=== PATIENT | female | born 1965 | race Caucasian/White ===

== ENCOUNTER → 2018-02-19 14:42 | Outpatient (REF) | payer OTHER, SELFPAY ==
--- NOTE | 2018-02-19 14:00 | ENDOMET_PTH ---
PATIENT: Alicia Purvis LOC: [facility] U#:[id number] AGE/SX: 60/F ROOM: RE02/19/[address]: Princess Hayes MD : 1965 BED: DIS: SPEC #: [id number] RECD: 02/19/18 17:58 STATUS: LONI RELaura #: [id number] JENNIFER: 02/19/18 14:[address]: Princess Hayes DEPT: Surgical Specimen RECD BY: Maggie Bartholomew ENTERED: 02/19/18 17:59 SP TYPE: Endomet OTHR DR: Lamberto Stout DO Tissues: 1 - ENDOMETRIUM BX/CURRETTE Procedures: GROSS AND MICRO LEVEL 4 Comments: [id number]
== END ==
LOC: LBN 14:42
PROVIDERS: PCP Emergency Medicine; Visit Provider Obstetrics & Gynecology
DX: N92.0 Excessive and frequent menstruation with regular cycle (principal); N88.8 Other specified noninflammatory disorders of cervix uteri
CPT/HCPCS: 88305

== ENCOUNTER 2018-04-02 11:57 | Outpatient (CLI) | payer OTHER, SELFPAY ==
[2018-04-02 12:46] LABS: Abs Immature Grans 0.01 k/cumm (0.0-0.09); Absolute Basophil Count 0.03 k/cumm (0.0-0.2); Absolute Eosinophil Count 0.18 k/cumm (0.0-0.7); Absolute Lymphocyte Count 1.54 k/cumm (1.2-3.4); Absolute Monocyte Count 0.29 k/cumm (0.11-0.7); Basophils % 0.5; HCT 36.6 % (36.0-46.0); HGB 11.9 g/dL (12.0-15.5); Immature Grans % 0.2; Lymphocytes % 25.5; Mean Corp. HGB Concentration 32.5 g/dL (32.0-36.0); Mean Corpuscular Volume 89.3 fL (80-95); Mean Platelet Volume 11.4 fL (8.0-11.0); Monocytes % 4.8; Platelet Count 291 x1000/uL (130-400); RBC Distribution Width 13.5 % (11.7-14.6); White Blood Cell Count 6.05 k/cumm (4.4-10.8)
[2018-04-02 13:41] LABS: HCG Quant, Pregnancy < 1 mIU/mL (1-3)
== END 2018-04-02 12:17 ==
PROVIDERS: PCP Emergency Medicine; Visit Provider Obstetrics & Gynecology
DX: N92.0 Excessive and frequent menstruation with regular cycle (principal); Z01.818 Encounter for other preprocedural examination; N84.0 Polyp of corpus uteri
CPT/HCPCS: 36415; 86850; 86900; 86901; 84702; 85014; 85018; 85025

== ENCOUNTER 2018-04-03 11:12 | Day surgery (SDC) | payer OTHER, SELFPAY ==
[2018-04-03] VITALS (8 sets, daily range): BP systolic 102–116; BP diastolic 61–70; PULSE 76–85; RESP 11–18; TEMP 36.3–37.5; O2SAT 94–98
--- NOTE | 2018-04-03 08:51 | W.PM.HP.N ---
Date of service: 04/03/18 Assessment and Plan (1) Menorrhagia: Current visit: Yes Status: Acute 52 yo G2 female with menorraghia for surgical treatment Operative hysteroscopy D+C Novasure endometrial ablation She will need frozen section evaluation of her endometrium prior to Novasure endometrial Ablation R/B/A reviewed consents signed History of Present Illness Chief Complaint: Menorraghia Narrative: 52 yo female presented for complaints of prolonged and heavy menstrual periods. Medical work up neg. Endo bx insufficient tissue. Patient has been advised of medical and surgical treatment alternatives for menorraghia. SHe would prefer surgical therapy with D+C, Hysteroscopy Novasure. Since the endometrial bx was insufficient , prior to novasure will do frozen section endometrium. R/B/A as well success rates reviewed with patient. Consents signed. All questions asked and answered. Review of Systems Eyes Comments: See HPI all all system asked and negative PFSH Family History Mother No problems noted. Father No problems noted. Grandfather Neoplasm Maternal Aunt Neoplasm Maternal Aunt Neoplasm Medical History Menorrhagia (Acute) Social History number of children: 2 pets and animals: Yes pets and animals: cat(s) and dog(s) Smoking/Tobacco Use Status: Never alcohol intake: never substance use type: does not use gabriel/hoahaoism: Hinduism special gabriel needs: No seatbelt use: always Surgical History Ligation of fallopian tube section Knee surgery Cholecystectomy Appendectomy Female Reproductive History Menstrual Duration of menses: 8-10 days control method: permanent sterilization Meds Home Medications Medication Instructions Recorded Confirmed Type [id number] fum-folic 1 tab-cap PO DAILY tab-cap 02/19/18 04/01/18 History [ Tablet] ranitidine 75 mg tablet 75 mg PO BID PRN 04/01/18 04/01/18 History ranitidine HCl [Zantac 75] 75 mg PO PRN PRN 04/01/18 04/01/18 History Allergies Allergy/AdvReac Type Severity Reaction Status Date / Time No Known Drug Allergies Allergy Unverified 02/19/18 13:26 Exam Narrative Exam Narrative: well appearing female Resp Effort & Inspection: normal respiratory effort and able to speak in complete sentences Auscultation: clear to auscultation bilaterally Cardio Jugular venous pressure: no JVD Rate: regular rate Rhythm: regular rhythm Heart Sounds: S1 normal and S2 normal External Female Exam: external appearance normal Speculum Exam - Vagina: normal appearance of the vagina Speculum Exam - Cervix: normal appearance of the cervix Bimanual Exam- Vagina & Uterus: normal bimanual exam Bimanual Exam- Adnexa, other: normal adnexae
--- NOTE | 2018-04-03 08:57 | HPE_ITS ---
Date of service: 04/03/18 Assessment and Plan (1) Menorrhagia: Current visit: Yes Status: Acute 52 yo G2 female with menorraghia for surgical treatment Operative hysteroscopy D+C Novasure endometrial ablation She will need frozen section evaluation of her endometrium prior to Novasure endometrial Ablation R/B/A reviewed consents signed History of Present Illness Chief Complaint: Menorraghia Narrative: 52 yo female presented for complaints of prolonged and heavy menstrual periods. Medical work up neg. Endo bx insufficient tissue. Patient has been advised of medical and surgical treatment alternatives for menorraghia. SHe would prefer surgical therapy with D+C, Hysteroscopy Novasure. Since the endometrial bx was insufficient , prior to novasure will do frozen section endometrium. R/B/A as well success rates reviewed with patient. Consents signed. All questions asked and answered. Review of Systems Eyes Comments: See HPI all all system asked and negative PFSH Family History Mother No problems noted. Father No problems noted. Grandfather Neoplasm Maternal Aunt Neoplasm Maternal Aunt Neoplasm Medical History Menorrhagia (Acute) Social History number of children: 2 pets and animals: Yes pets and animals: cat(s) and dog(s) Smoking/Tobacco Use Status: Never alcohol intake: never substance use type: does not use gabriel/yazidism: Yarsani special gabriel needs: No seatbelt use: always Surgical History Ligation of fallopian tube section Knee surgery Cholecystectomy Appendectomy Female Reproductive History Menstrual Duration of menses: 8-10 days control method: permanent sterilization Meds Home Medications Medication Instructions Recorded Confirmed Type [id number] fum-folic 1 tab-cap PO DAILY tab-cap 02/19/18 04/01/18 History [ Tablet] ranitidine 75 mg tablet 75 mg PO BID PRN 04/01/18 04/01/18 History ranitidine HCl [Zantac 75] 75 mg PO PRN PRN 04/01/18 04/01/18 History Allergies Allergy/AdvReac Type Severity Reaction Status Date / Time No Known Drug Allergies Allergy Unverified 02/19/18 13:26 Exam Narrative Exam Narrative: well appearing female Resp Effort & Inspection: normal respiratory effort and able to speak in complete sentences Auscultation: clear to auscultation bilaterally Cardio Jugular venous pressure: no JVD Rate: regular rate Rhythm: regular rhythm Heart Sounds: S1 normal and S2 normal External Female Exam: external appearance normal Speculum Exam - Vagina: normal appearance of the vagina Speculum Exam - Cervix: normal appearance of the cervix Bimanual Exam- Vagina & Uterus: normal bimanual exam Bimanual Exam- Adnexa, other: normal adnexae
[2018-04-03] MEDS: Lactated Ringers 1,000 ML 125 ML IV (12:08)
--- NOTE | 2018-04-03 13:53 | ENDOMET_PTH ---
PATIENT: Alicia Purvis LOC: [facility] U#:[id number] AGE/SX: 52/F ROOM: RE04/03/[address]: Princess Hayes MD : 1965 BED: DIS: 04/03/2018 SPEC #: [id number] RECD: 04/03/18 17:18 STATUS: LNOI REQ #: [id number] JENNIFER: 04/03/18 13:[address]: Princess Hayes DEPT: Surgical Specimen RECD BY: Maggie Bartholomew ENTERED: 04/03/18 17:19 SP TYPE: Endomet OTHR DR: Lamberto Stout DO Tissues: 1 - ENDOMETRIUM BX/CURRETTE 2 - FROZEN SECTION EXAM Procedures: GROSS AND MICRO LEVEL 4 FROZEN SECTION EXAM Comments: [id number]
[2018-04-03] MEDS: fentaNYL 100 MCG/2 ML VIAL IVP (15:15)
[2018-04-03] MEDS: Lactated Ringers 1,000 ML 80 ML IV (15:17)
--- NOTE | 2018-04-03 15:45 | W.PM.DSUDISC ---
Discharge Plan Disposition Patient Disposition: HOME Condition: Good Discharge Details Reason For Visit: MENORRAGHIA / ENDOMETRIAL POLYPS Attending Provider: Princess Hayes Primary Care Provider: Lamberto Stout Home Meds and New Rx's Prescriptions: Continue ibuprofen 800 mg tablet 800 mg PO TID Qty: 30 RF: 1 hydrocodone-acetaminophen [Vicodin] 5-300 mg tablet 1 tab PO Q6H PRN (Reason: pain) Qty: 7 RF: 0 [id number] fum-folic [] 1 EACH tablet 1 tab-cap PO DAILY RF: 0 ranitidine HCl [Zantac 75] 75 mg Tablet 75 mg PO PRN PRNRF: 0 Discharge Instructions Additional Instructions: Postoperative Instructions Outpatient Gynecology Because there will be medication in your system for the next 24 hours, you may feel a little sleepy. Your coordination will be affected. Therefore: Do not drive or operate dangerous equipment for 24 hours. Do not drink alcoholic beverages for 24 hours (not even beer). Plan to go home and rest for the day. Rest, drink liquids and eat lightly for the rest of the day. Do not plan to return to normal activity for two full days. Some women require 5-7 days to feel 100 percent. Arrange to have someone stay with you for the rest of the day. You should arrange for child guidance counselor on the day of surgery. If you have incisions, remove the bandage in 24 hours. You may have a sore throat or hoarseness after surgery. This usually lasts a short time and is relieved by drinking liquids. If hoarseness persists longer than 24 hours, please contact the anesthesia department by calling the hospital. Take Tylenol or Advil for cramping. If that does not work, you may be too active so try cutting back on your activities. You may use up to 3 Advil every (4) four to (6) six hours. Use the prescription medication in between doses of Advil if needed. You should be able to urinate as usual following the surgery. Any form of surgery can cause your menstrual cycle to become irregular. If you have had a D and C you may spot for a week after surgery and your next period will start in (4) four to (6) six weeks. If you have had the sterilization procedure no follow-up appointment is necessary. For other procedures you need a follow-up appointment (4) four to (6) six weeks following surgery. Please call the office for an appointment. If you had a Laparascopic procedure there are no restrictions on douching, tampons, intercourse or tub baths. If you had any vaginal procedure you may not use tampons, have intercourse or douche for 2 weeks. you may take a shower or bath. Please report any of the following conditions or any questions regarding your condition to your doctor and the Day Surgery Unit: Increased drainage or foul smelling drainage. Temperature of 101 F or above. Excessive pain. If you are unable to contact your doctor, contact the hospital at [phone]. Continue all your regular medications unless directed otherwise. Revised 12/26/10 Activity:: Activity as Tolerated Shower/Bathe:: 48 hours Diet:: As Tolerated Discharge Orders Discharge Orders: Discharge Order (Routine); Ordered 04/03/18 Ordered By: Princess Hayes DS: Diagnosis Discharge Diagnosis (1) Menorrhagia: Status: Acute
--- NOTE | 2018-04-03 15:48 | PDOC.DSDIS_ITS ---
Discharge Plan Disposition Patient Disposition: HOME Condition: Good Discharge Details Reason For Visit: MENORRAGHIA / ENDOMETRIAL POLYPS Attending Provider: Princess Hayes Primary Care Provider: Lamberto Stout Home Meds and New Rx's Prescriptions: Continue ibuprofen 800 mg tablet 800 mg PO TID Qty: 30 RF: 1 hydrocodone-acetaminophen [Vicodin] 5-300 mg tablet 1 tab PO Q6H PRN (Reason: pain) Qty: 7 RF: 0 [id number] fum-folic [] 1 EACH tablet 1 tab-cap PO DAILY RF: 0 ranitidine HCl [Zantac 75] 75 mg Tablet 75 mg PO PRN PRNRF: 0 Discharge Instructions Additional Instructions: Postoperative Instructions Outpatient Gynecology * Because there will be medication in your system for the next 24 hours, you may feel a little sleepy. Your coordination will be affected. Therefore: Do not drive or operate dangerous equipment for 24 hours. Do not drink alcoholic beverages for 24 hours (not even beer). Plan to go home and rest for the day. * Rest, drink liquids and eat lightly for the rest of the day. Do not plan to return to normal activity for two full days. Some women require 5-7 days to feel 100 percent. * Arrange to have someone stay with you for the rest of the day. You should arrange for early childhood education worker on the day of surgery. * If you have incisions, remove the bandage in 24 hours. * You may have a sore throat or hoarseness after surgery. This usually lasts a short time and is relieved by drinking liquids. If hoarseness persists longer than 24 hours, please contact the anesthesia department by calling the hospital. * Take Tylenol or Advil for cramping. If that does not work, you may be too active so try cutting back on your activities. You may use up to 3 Advil every (4) four to (6) six hours. Use the prescription medication in between doses of Advil if needed. * You should be able to urinate as usual following the surgery. * Any form of surgery can cause your menstrual cycle to become irregular. If you have had a D and C you may spot for a week after surgery and your next period will start in (4) four to (6) six weeks. * If you have had the sterilization procedure no follow-up appointment is necessary. For other procedures you need a follow-up appointment (4) four to (6 ) six weeks following surgery. Please call the office for an appointment. * If you had a Laparascopic procedure there are no restrictions on douching, tampons, intercourse or tub baths. If you had any vaginal procedure you may not use tampons, have intercourse or douche for 2 weeks. you may take a shower or bath. * Please report any of the following conditions or any questions regarding your condition to your doctor and the Day Surgery Unit: Increased drainage or foul smelling drainage. Temperature of 101 F or above. Excessive pain. * If you are unable to contact your doctor, contact the hospital at [phone]. * Continue all your regular medications unless directed otherwise. Revised 12/26/10 Activity:: Activity as Tolerated Shower/Bathe:: 48 hours Diet:: As Tolerated Discharge Orders Discharge Orders: Discharge Order (Routine); Ordered 04/03/18 Ordered By: Princess Hayes DS: Diagnosis Discharge Diagnosis (1) Menorrhagia: Status: Acute
[2018-04-03] MEDS: HYDROcodone 5/Acetaminophen 325 TAB PO (16:18)
--- NOTE | 2018-04-04 09:46 | ROE_ITS ---
Date of service: 04/03/18 Operative Note Date of procedure: 04/03/18 Pre-op diagnosis: Menorraghia Post-op diagnosis: same Procedure: Hysteroscopy, D+C, Frozen Pathology Endometrium, Novasure Endometrial Ablation Anesthesia: GETA Estimated blood loss (mL): 200 Pathology: other (Frozen pathology Benign endometrium) Complications: Other (laceration form tenaculum posterior cervix repaired with 2 -0 vicryl) Patient was transported to: PACU Patient's condition: stable Indications: Menorraghia Findings: Proliferative endometrium no polyps or fibroid benign endometrium by frozen section Novasure settings Cavity length 5.0 cm, width 4.4 cm, Power 133 Procedure Description: The patient was brought to the operating room where she was properly identified. She was placed on the operating table in the dorsal supine position and prepped and draped in normal sterile fashion. General anesthesia was induced with difficulty. She was then placed in the dorsal lithotomy position and prepped and draped in normal sterile fashion. A formal timeout procedure was then performed confirming patient procedure without cervix surgical personnel present. The bladder was drained with a red rubber catheter without difficulty for 200 cc of clear urine. Linden speculum was placed cervix was visualized clasped in the anterior tenaculum. The cervix was then dilated with Hardwick dilators the hysteroscope was advanced into the uterine cavity without difficulty inspection of the uterine cavity. Both ostia were visualized bilaterally. There is no defect noted. No evidence of submucosal fibroid. The hysteroscope was removed from the uterus a sharp curettage was performed. The endometrial curettings were sent to Dr. Nettles and pathology for frozen section. The pathology intraoperatively revealed mucus blood and benign endometrial tissue. Since the pathology was negative the NovaSure endometrial ablation was performed. The uterine total length was measured at 10 cm. The endometrial cavity length was 5.0 cm. It was attempted to pass the NovaSure apparatus and cavity which was difficult due to the retroverted position of the patient's uterus. The patient once cervix was read using Hegar cervical dilators to 10 cm. This allowed passage of the NovaSure apparatus cavity without apparatus was. An initial cavity was measured at 4.4 cm width. Cavity assessment was in the endometrial ablation was performed without difficulty. All equipment was removed from the uterus and cervix. A 2 cm posterior cervical laceration was noted within the cervix. This laceration was repaired using 2-0 Vicryl in a running locked fashion. Hemostasis was. Sponge lap needle and sponge count were correct x2 and the patient was awakened and taken in stable condition.
== END 2018-04-03 17:02 | disposition home or self-care (01) ==
PROVIDERS: PCP Emergency Medicine; Visit Provider Obstetrics & Gynecology
PROC: 0UDB8ZZ Extraction of Endometrium, Via Natural or Artificial Opening Endoscopic (ICD-10-PCS; CPT 58558; principal; 2018-04-03 13:00)
PROC: (CPT 58353; 2018-04-03 13:00)
DX: N92.0 Excessive and frequent menstruation with regular cycle (principal); N84.0 Polyp of corpus uteri; N99.71 Accidental puncture and laceration of a genitourinary system organ or structure during a genitourinary system procedure; Y65.8 Other specified misadventures during surgical and medical care; K21.9 Gastro-esophageal reflux disease without esophagitis
CPT/HCPCS: 58563; 88305; NC; 88331; J1100; J1885; J2405; J3010

== ENCOUNTER 2018-04-11 10:16 | Outpatient (CLI) | payer OTHER, SELFPAY ==
[2018-04-11 11:35] LABS: Abs Immature Grans 0.04 k/cumm (0.0-0.09); Absolute Basophil Count 0.03 k/cumm (0.0-0.2); Absolute Eosinophil Count 0.17 k/cumm (0.0-0.7); Absolute Lymphocyte Count 1.74 k/cumm (1.2-3.4); Absolute Monocyte Count 0.59 k/cumm (0.11-0.7); Absolute Neutrophil Count 6.05 k/cumm (1.2-6.7); Basophils % 0.3; HCT 32.4 % (36.0-46.0); HGB 10.3 g/dL (12.0-15.5); Immature Grans % 0.5; Lymphocytes % 20.2; Mean Corp. HGB Concentration 31.8 g/dL (32.0-36.0); Mean Corpuscular Hemoglobin 29.3 pg (27.0-33.0); Mean Platelet Volume 11.3 fL (8.0-11.0); Monocytes % 6.8; Neutrophils % 70.2; Platelet Count 352 x1000/uL (130-400); RBC 3.52 m/cumm (4.00-5.20); RBC Distribution Width 13.6 % (11.7-14.6); White Blood Cell Count 8.62 k/cumm (4.4-10.8)
== END 2018-04-11 10:36 ==
PROVIDERS: PCP Emergency Medicine; Visit Provider Emergency Medicine
DX: D64.9 Anemia, unspecified (principal)
CPT/HCPCS: 36415; 85025

== ENCOUNTER 2018-07-21 01:08 | Outpatient (CLI) | payer OTHER, SELFPAY ==
[2018-07-21 15:17] LABS: HCT 38.5 % (36.0-46.0); HGB 12.5 g/dL (12.0-15.5)
--- NOTE | 2018-07-21 15:40 | DI.MAMMO_ITS ---
SYMPTOM/DIAGNOSIS: SCREENING, Z12.31 MAMMOGRAMS: Mammograms were interpreted according to the usual protocol including computer analysis with CAD system, tomosynthesis and C view imaging. Comparison is made with exams from 2428-4245. The breasts are composed of heterogeneously dense fibroglandular tissue, breast density, Category C. Stable circumscribed nodules are again noted bilaterally. No suspicious masses or suspicious microcalcifications are seen. There has been no significant change. IMPRESSION: Category 2C, negative mammogram with benign findings. Yearly screening mammography is recommended. MQSA ASSESSMENT OF FINDINGS: Negative with benign findings. Category 2. Patient will receive a letter notifying them of these results. Bi-RADS category C. The breasts are heterogeneously dense, which may obscure small masses.
== END 2018-07-21 01:28 ==
PROVIDERS: PCP Emergency Medicine; Visit Provider Nurse Practitioner Family
DX: D64.9 Anemia, unspecified (principal); Z12.31 Encounter for screening mammogram for malignant neoplasm of breast
CPT/HCPCS: 36415; 77063; 77067; 85014; 85018

== ENCOUNTER 2018-08-29 16:17 | Outpatient (CLI) | payer OTHER, SELFPAY ==
[2018-08-29 17:17] LABS: ALT 20 U/L (12-78); AST 13 U/L (15-37); Albumin 3.6 g/dL (3.4-5.0); Alkaline Phosphatase 92 U/L (46-116); Anion Gap 8.7 mmol/L (3-11); BUN 10 mg/dL (7-18); Bilirubin, Total 0.3 mg/dL (0.2-1.0); CO2 27.3 mmol/L (21.0-32.0); CREATININE 0.97 mg/dL (0.55-1.02); Calcium 8.4 mg/dL (8.5-10.1); Chloride 103 mmol/L (98-107); Glucose 95 mg/dL (70-100); Iron 43 ug/dL (50-175); Potassium 4.2 mmol/L (3.5-5.1); Sodium 139 mmol/L (136-145); Total Iron Binding Capacity 279 ug/dL (250-450); Transferrin Sat 15 % (15-50)
== END 2018-08-29 16:37 ==
PROVIDERS: PCP Internal Medicine; Visit Provider Internal Medicine
DX: N92.0 Excessive and frequent menstruation with regular cycle (principal); L67.9 Hair color and hair shaft abnormality, unspecified
CPT/HCPCS: 36415; 80053; 83540; 83550

== ENCOUNTER 2018-10-14 12:05 | Outpatient (CLI) | payer OTHER, SELFPAY ==
[2018-10-14 13:04] LABS: HCT 38.5 % (36.0-46.0); HGB 12.5 g/dL (12.0-15.5); Mean Corp. HGB Concentration 32.5 g/dL (32.0-36.0); Mean Corpuscular Hemoglobin 29.7 pg (27.0-33.0); Mean Corpuscular Volume 91.4 fL (80-95); Mean Platelet Volume 11.6 fL (8.0-11.0); Platelet Count 275 x1000/uL (130-400); RBC 4.21 m/cumm (4.00-5.20); RBC Distribution Width 12.7 % (11.7-14.6); White Blood Cell Count 8.12 k/cumm (4.4-10.8)
[2018-10-16 07:52] LABS: Vitamin D 25 Total 8.1 ng/ml (30-100)
== END 2018-10-14 12:25 ==
PROVIDERS: PCP Internal Medicine; Visit Provider Family Medicine
DX: R79.89 Other specified abnormal findings of blood chemistry (principal); Z01.818 Encounter for other preprocedural examination
CPT/HCPCS: 36415; 82306; 85027

== ENCOUNTER 2018-11-25 02:45 | Outpatient (CLI) | payer OTHER, SELFPAY ==
[2018-11-25 11:20] LABS: HGB 11.7 g/dL (12.0-15.5)
== END 2018-11-25 03:05 ==
PROVIDERS: PCP Internal Medicine; Visit Provider Internal Medicine
DX: D64.9 Anemia, unspecified (principal)
CPT/HCPCS: 36415; 85014; 85018

== ENCOUNTER 2018-12-22 09:25 | Outpatient (CLI) | payer OTHER, SELFPAY ==
[2018-12-22 13:56] LABS: HCT 38.1 % (36.0-46.0); HGB 12.3 g/dL (12.0-15.5); Mean Corp. HGB Concentration 32.3 g/dL (32.0-36.0); Mean Corpuscular Volume 92.9 fL (80-95); Mean Platelet Volume 11.7 fL (8.0-11.0); Platelet Count 302 x1000/uL (130-400); RBC Distribution Width 12.9 % (11.7-14.6); White Blood Cell Count 6.61 k/cumm (4.4-10.8)
[2018-12-22 15:13] LABS: Iron 64 ug/dL (50-175); Total Iron Binding Capacity 274 ug/dL (250-450); Transferrin Sat 23 % (15-50)
== END 2018-12-22 09:45 ==
PROVIDERS: PCP Internal Medicine; Visit Provider Internal Medicine
DX: D64.9 Anemia, unspecified (principal)
CPT/HCPCS: 36415; 85027; 83540; 83550

== ENCOUNTER 2019-01-14 01:34 | Outpatient (CLI) | payer OTHER, SELFPAY ==
[2019-01-15 05:21] LABS: Vitamin D 25 Total 34.8 ng/ml (30-100)
== END 2019-01-14 01:54 ==
PROVIDERS: PCP Internal Medicine; Visit Provider Internal Medicine
DX: E55.9 Vitamin D deficiency, unspecified (principal)
CPT/HCPCS: 36415; 82306

== ENCOUNTER 2019-09-25 00:15 | Outpatient (CLI) | payer OTHER, SELFPAY ==
[2019-09-25 07:37] LABS: HGB 12.9 g/dL (12.0-15.5); Mean Corp. HGB Concentration 32.3 g/dL (32.0-36.0); Mean Platelet Volume 10.7 fL (8.0-11.0); Platelet Count 299 x1000/uL (130-400); RBC Distribution Width 12.5 % (11.7-14.6); White Blood Cell Count 6.75 k/cumm (4.4-10.8)
[2019-09-25 08:48] LABS: Iron 88 ug/dL (50-170); Total Iron Binding Capacity 253 ug/dL (250-450); Transferrin Sat 35 % (15-50)
[2019-09-25 08:49] LABS: ALT 13 U/L (14-59); AST 8 U/L (15-37); Albumin 3.5 g/dL (3.4-5.0); Alkaline Phosphatase 88 U/L (46-116); Anion Gap 7.7 mmol/L (3-11); BUN 9 mg/dL (7-18); Bilirubin, Total 0.5 mg/dL (0.2-1.0); CO2 28.3 mmol/L (21.0-32.0); Calcium 8.6 mg/dL (8.5-10.1); Chloride 103 mmol/L (98-107); Glucose 87 mg/dL (74-106); Sodium 139 mmol/L (136-145); Total Protein 6.7 g/dL (6.4-8.2)
== END 2019-09-25 00:35 ==
PROVIDERS: PCP Internal Medicine; Visit Provider Internal Medicine
DX: Z00.00 Encounter for general adult medical examination without abnormal findings (principal); D64.9 Anemia, unspecified
CPT/HCPCS: 36415; 80053; 85027; 83540; 83550

== ENCOUNTER 2020-04-27 11:04 | Emergency (ER) | payer OTHER, SELFPAY ==
[2020-04-27 11:08] VITALS: BP 116/73; PULSE 88; RESP 18; TEMP 36.7; O2SAT 97
--- NOTE | 2020-04-27 12:18 | W.ED.GENAD ---
Discharge Plan Disposition Patient Disposition: HOME Condition: Stable Discharge Details Clinical Impression: Finger laceration, Laceration of finger nail bed Primary Care Provider: Chula Mccollum ED Provider: Francia Clark Home Meds and New Rx's Prescriptions: New cephalexin [Keflex] 500 mg capsule 500 mg PO TID 7 Days Qty: 21 RF: 0 Continued cholecalciferol (vitamin D3) 5,000 unit tablet,disintegrating 5,000 unit PO DAILY RF: 0 polysaccharide iron complex [Ferric x-150] 150 mg iron capsule 150 mg PO DAILY Qty: 90 RF: 3 omega-3 fatty acids Capsule 1 cap PO DAILY RF: 0 docusate sodium [Colace] 100 mg Capsule 100 mg PO PRN PRNRF: 0 Discharge Instructions Instructions: Finger Laceration (ED) Additional Instructions: Take the antibiotics until finished. Alternate tylenol and motrin as needed and directed for pain. Take the oxycodone for pain not relieved with Tylenol or Motrin. Keep wound clean and dry. Cover wound with bandage if risk of contamination. Otherwise you can keep the wound open to air if resting at home to allow edges to dry and heal. Return to the emergency department in 7-10 days for suture removal. Return immediately to the emergency department if you develop any worsening or new concerning symptoms such as fever, chills, increased pain, redness or swelling. Stand Alone Forms: Work Release Discharge Data Discharge Date/Time-TO BE ENTERED AT DEPARTURE: 04/27/20 15:00 Discharge Physician: Francia Clark Medical Decision Making 1120 -- 54-year-old female presents with laceration to her left fourth fingertip after a piece of metal ricocheted from a chop saw on hit the distal end of her finger. She has a laceration through the nail and soft tissue of her distal fourth fingertip. Volar aspect of finger still intact. There is no obvious bony protrusion or foreign body. Motor/sensory grossly intact. Patient stating she is in severe pain. Will give a dose of oxycodone, ibuprofen, irrigate, obtain x-ray and closed with sutures. 1430 -- X-ray negative for acute findings. There did appear to be a small foreign bodies noted on the lower aspect of her hand on the x-ray, but this was due to shavings from her ring which was removed by the ring cutter just prior to x-ray. These small superficial foreign bodies were removed with cleaning. Patient had 3 nylon 3-0 sutures placed to left distal fourth finger, 2 through nail, 1 through soft tissue. She remained neurovascularly intact. She was given a dose of Keflex here as well as prescription. She had requested pain medication for home to help with sleep. Advised to follow up with the primary care doctor for re-evaluation. Usual and customary return precautions given prior to discharge. Imaging Data Radiologic Study: Radiologist's impression: XR HAND LT COMPLETE CLINICAL HISTORY: lac 4th distal finger/2nd prox phalange, r/o fx/fb TECHNIQUE: COMPARISON: No exams were available for comparison FINDINGS: Three views were obtained. No fracture is seen. HPI General Mode of arrival: ambulatory. Date/Time Provider Initiated Documentation: 04/27/20 11:09. Limitations to Documentation: no limitations. Information obtained by: patient. HPI Narrative: Patient is a 54-year-old female who presents with laceration to her left fourth finger with injury to her nail that occurred when using a chop saw at work and caused a metal blade to ricochet from the instrument and hit the distal end of her finger. She also has superficial lacerations to her left second and fifth fingers. Her last tetanus was 3 years ago. She has not taken any medication for pain. Related Data Home Medications Medication Instructions Recorded Confirmed cholecalciferol (vitamin D3) 125 5,000 unit PO DAILY 09/30/19 04/27/20 mcg (5,000 unit) disintegrating tablet polysaccharide iron complex 150 mg 150 mg PO DAILY #90 cap 02/24/20 04/27/20 iron capsule cephalexin [Keflex] 500 mg PO TID 7 Days #21 cap 04/27/20 docusate sodium [Colace] 100 mg PO PRN PRN 04/27/20 04/27/20 omega-3 fatty acids 1 cap PO DAILY 04/27/20 04/27/20 Previous Rx's Medication Instructions Recorded polysaccharide iron complex 150 mg 150 mg PO DAILY #90 cap 02/24/20 iron capsule cephalexin [Keflex] 500 mg PO TID 7 Days #21 cap 04/27/20 Allergies Allergy/AdvReac Type Severity Reaction Status Date / Time No Known Drug Allergies Allergy Unverified 04/27/20 11:13 General Stated Complaint: Laceration KELLEY: 3 Review of Systems All systems reviewed & are unremarkable except as noted in HPI and below PFSH Medical History (Updated 04/27/20 @ 14:38 by Francia Clark DO) Menorrhagia resolved post op 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 Father No problems noted. Paternal Grandfather , 85 Colon cancer Maternal Aunt Breast cancer Maternal Aunt Breast cancer Maternal Grandfather , 83 No problems noted. Maternal Grandmother , 84 No problems noted. Paternal Grandmother , 80 No problems noted. Son No problems noted. Son No problems noted. Sister No problems noted. Son No problems noted. Social History (Updated 10/01/19 @ 08:28 by Viktor Mcdonnell) Smoking/Tobacco Use Status: Never Alcohol Intake: current Alcohol Intake frequency: 0-2 drinks per day Drug use: Never Substance use type: does not use Caregiver/Support person: No Household members: significant other and children Housing: house Number of Children: 2 Pets and animals: Yes Pets and animals: cat(s) and dog(s) Sexually active: No Do you think of yourself as: lesbian/caldera/homosexual Current gender identity: female What is your relationship status?: living with partner How often do you talk on the phone with friends or family?: twice per week How often do you get together with friends or relatives?: once per week How often do you attend gnosticism or bahai services?: 1-3 times per year Do you belong to any clubs or organized social groups?: yes Panel score (0-1 are the most socially isolated patients): 3 What type of physical activity do you participate in: walking and other Details: treadmill & bike Duration: 45-60 minutes/day Frequency: 3-4 times per week Keely/Zoroastrian: Adventism Special keely needs: No Seatbelt use: always Helmet use: Yes Helmet use: always 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 Do you feel safe at home: Yes Do you feel safe in your relationship?: Yes Female Reproductive History Menstrual Duration of menses: 8-10 days control method: permanent sterilization Exam Const General: cooperative, healthy appearing and no acute distress HENMT Head: normal to inspection Mouth: oral mucosae normal Eyes General: appearance normal, both eyes and all related structures Neck Neck: normal visual inspection Resp Effort & Inspection: normal respiratory effort and able to speak in complete sentences Cardio Rate: regular rate Skin General skin exam: no rashes or lesions noted Neuro General: patient alert, patient awake, patient oriented x3, moves all extremities and no focal motor deficits Motor: muscle tone normal throughout and strength 5/5 throughout Sensory Exam: no sensory deficits noted Extrem Hand/finger images: 1. Laceration through middle portion of nail of the left fourth finger. Volar aspect of finger appears intact. No obvious bone protrusion. No obvious foreign bodies. 2. 3 mm superficial laceration noted to dorsal aspect of left second proximal phalange 3. 3 mm superficial laceration noted to the dorsal lateral aspect of left fifth finger. Psych Appearance: grossly normal Affect: normal affect Course Vital Signs Vital signs: Vital Signs Temperature 98.1 F 04/27/20 11:08 Pulse 88 04/27/20 11:08 Respiratory Rate 18 04/27/20 11:08 Blood Pressure 116/73 04/27/20 11:08 Pulse Oximetry 97 04/27/20 11:08 Temperature 98.1 F 04/27/20 11:08 Temperature Source Skin 04/27/20 11:08 Pulse 88 04/27/20 11:08 Respiratory Rate 18 04/27/20 11:08 Respiratory Effort 04/27/20 11:15 Blood Pressure 116/73 04/27/20 11:08 Blood Pressure Position Sitting 04/27/20 11:08 Pulse Oximetry 97 04/27/20 11:08 Oxygen Delivery Method Room Air 04/27/20 11:08 Oxygen Flow Rate 0 04/27/20 11:08 Pain Level 10 04/27/20 11:08 Comment 04/27/20 11:08 Procedures Laceration Laceration 1: Site: hand (4th finger) Side (If applicable): left Size (cm): 1 Description: other (transverse through middle of nail extending to skin on sides of nail) Depth: simple, single layer (extending through nail and soft tissue. Bone intact.) Local Anesthetic: Lidocaine 1% Amount of anesthesia used (mL): 5 Pre-repair: wound explored, irrigated extensively, deep structures intact and wound margins revised Skin layer closed with: nylon Size (cm): 3-0 Number of sutures: 3 Technique: simple, interrupted
[2020-04-27] MEDS: Ibuprofen 600 MG TAB PO (12:26)
[2020-04-27] MEDS: oxyCODONE 5 MG TAB PO (12:26)
--- NOTE | 2020-04-27 12:48 | DI.RAD_ITS ---
EXAM: XR HAND LT COMPLETE CLINICAL HISTORY: lac 4th distal finger/2nd prox phalange, r/o fx/fb TECHNIQUE: COMPARISON: No exams were available for comparison FINDINGS: Three views were obtained. No fracture is seen. IMPRESSION: RADIATION DOSE DELIVERED: Total DLP
[2020-04-27] MEDS: Cephalexin 500 MG CAP PO (14:47)
[2020-04-27 15:08] VITALS: BP 110/66; PULSE 76; RESP 18; TEMP 36.3; O2SAT 98
== END 2020-04-27 15:00 | disposition home or self-care (01) ==
PROVIDERS: Emergency Provider Physician Assistant; PCP Nurse Practitioner
DX: S61.315A Laceration without foreign body of left ring finger with damage to nail, initial encounter (principal); S61.211A Laceration without foreign body of left index finger without damage to nail, initial encounter; S61.217A Laceration without foreign body of left little finger without damage to nail, initial encounter; W27.0XXA Contact with workbench tool, initial encounter; Y99.0 Civilian activity done for income or pay
CPT/HCPCS: 12001; 99281; 73130

== ENCOUNTER 2020-04-29 16:11 | Outpatient (REF) | payer OTHER, SELFPAY ==
--- NOTE | 2020-04-29 15:20 | PAPFT_PTH ---
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
== END 2020-04-29 16:31 ==
LOC: LBN 16:11
PROVIDERS: PCP Nurse Practitioner; Visit Provider Nurse Practitioner Family
DX: Z12.4 Encounter for screening for malignant neoplasm of cervix (principal); Z11.51 Encounter for screening for human papillomavirus (HPV)
CPT/HCPCS: 88142; 87624

== ENCOUNTER 2020-05-19 01:28 | Outpatient (CLI) | payer OTHER, SELFPAY ==
--- NOTE | 2020-05-19 15:32 | DI.MAMMO_ITS ---
EXAM: MG MAMMO SCREENING CLINICAL HISTORY: screening TECHNIQUE: Mammograms were interpreted according to the usual protocol including computer analysis w [employer] CAD system, tomosynthesis and C-view imaging. COMPARISON: FINDINGS: The breasts are heterogeneously dense. There is group of well-circumscribed nodules of the upper out er quadrant of the left breast grossly unchanged from prior examination of June 2018. No new mas s or clumped microcalcification seen in either breast. IMPRESSION: No specific evidence of malignancy at this time. Routine screening examinations are suggested at yea rly intervals due to the family history of breast carcinoma. BI-RADS Category 1 - Negative Breast Density - Category C - Heterogeneously dense
== END 2020-05-19 01:48 ==
PROVIDERS: PCP Nurse Practitioner; Visit Provider Nurse Practitioner Family
DX: Z12.31 Encounter for screening mammogram for malignant neoplasm of breast (principal); Z80.3 Family history of malignant neoplasm of breast
CPT/HCPCS: 77063; 77067

== ENCOUNTER 2020-05-19 02:31 | Outpatient (CLI) | payer OTHER, SELFPAY ==
[2020-05-19 16:52] LABS: TSH (W/Ref FT4) 1.55 uIU/mL (0.36-3.74)
== END 2020-05-19 02:51 ==
PROVIDERS: PCP Nurse Practitioner; Visit Provider Nurse Practitioner Family
DX: E04.9 Nontoxic goiter, unspecified (principal)
CPT/HCPCS: 36415; 84443

== ENCOUNTER 2020-06-13 10:05 | Outpatient (CLI) | payer OTHER, SELFPAY ==
[2020-06-14 17:27] LABS: SARS-CoV-2 RNA Not Detected (NotDetected); SARS-CoV-2 RNA Source Nasal/Nares
== END 2020-06-13 10:25 ==
PROVIDERS: Surgery; PCP Nurse Practitioner; Visit Provider Nurse Practitioner
DX: Z11.59 Encounter for screening for other viral diseases (principal)
CPT/HCPCS: U0003

== ENCOUNTER 2020-06-28 03:33 | Outpatient (CLI) | payer OTHER, SELFPAY ==
[2020-07-01 18:52] LABS: COVID-19 RT-PCR Result NEGATIVE (Negative)
== END 2020-06-28 03:53 ==
PROVIDERS: PCP Nurse Practitioner; Visit Provider Surgery
DX: Z11.59 Encounter for screening for other viral diseases (principal); Z01.818 Encounter for other preprocedural examination
CPT/HCPCS: U0003

== ENCOUNTER 2020-07-01 06:14 | Day surgery (SDC) | payer OTHER, SELFPAY ==
[2020-07-01 06:29] VITALS: BP 104/65; PULSE 86; RESP 16; TEMP 36.7; O2SAT 95
[2020-07-01] MEDS: Lactated Ringers 1,000 ML 80 ML IV (07:05)
--- NOTE | 2020-07-01 07:16 | W.PM.DSUDISC ---
Discharge Plan Disposition Patient Disposition: HOME Condition: Good Discharge Details Reason For Visit: Colonoscopy Attending Provider: Yandy Toro Primary Care Provider: Chula Mccollum Home Meds and New Rx's Prescriptions: Continued cholecalciferol (vitamin D3) 5,000 unit tablet,disintegrating 5,000 unit PO DAILY RF: 0 ascorbate calcium (vitamin C) 500 mg tablet 500 mg PO DAILY RF: 0 polysaccharide iron complex [Ferric x-150] 150 mg iron capsule 150 mg PO DAILY Qty: 90 RF: 3 omega-3 fatty acids Capsule 1 cap PO DAILY RF: 0 docusate sodium [Colace] 100 mg Capsule 100 mg PO PRN PRNRF: 0 Discharge Instructions Additional Instructions: Findings: Your colonoscopy was normal. Follow up: Plan for routine screening colonoscopy in 10 years or sooner if symptoms arise. Please call if you develop: fevers >101.5 Nausea or Vomiting Abdominal pain that is not transient DAY SURGERY UNIT POST COLONOSCOPY INSTRUCTIONS 1. Because there will be medication in your system for the next 24 hours, you may feel a little sleepy. Your coordination will be affected. Therefore: a. Do not drive or operate dangerous equipment for 24 hours. b. Do not drink alcohol beverages for 24 hours (not even beer). c. Plan to go home and rest for the day. 2. Generally there are no restrictions on your activity after a day or so has gone by, but you may feel a bit fatigued for a few days. 3 After you arrive home you may have a light meal and return to a normal diet as you can tolerate it without feeling sick to your stomach. 4. After surgery, you may feel pain or discomfort. This should be only transient, but if it persists please contact your doctor. 5. If there are any questions regarding the findings of your procedure, please feel free to contact your doctor. 6. If you are unable to contact your doctor with a problem, contact the hospital at [phone]. 7. Continue all your regular medications unless directed otherwise. I understand the above instructions and have no questions. Signature of Patient or Responsible Adult Escort Date/Time Name of Responsible Adult Escort Signature of Nurse Date/Time Activity:: Activity as Tolerated Diet:: As Tolerated Discharge Orders Discharge Orders: Discharge Order (Routine); Ordered 07/01/20 Ordered By: Yandy Toro DS: Diagnosis Discharge Diagnosis (1) Normal colonoscopy: Status: Acute
--- NOTE | 2020-07-01 07:17 | W.COLOREPORT ---
Colonoscopy Report Date of procedure: 07/01/20 Pre-op diagnosis general: Screening Post-op diagnosis procedure note: other (Normal colon) Procedure: Colonoscopy Surgeon: Yandy Toro Anesthesia proc note operative: MAC Indications: This 54 year old woman presents for her first screening colonoscopy. No new symptoms or first degree relative with colon cancer. Her grandfather had colon cancer. Procedure Description: The patient was placed in the left [place] position. Propofol was titrated to sedation. Digital rectal examination revealed no abnormalities. The scope was advanced to the cecum without difficulty. The ileocecal valve and appendiceal orifice were clearly identified. The prep was good. The scope was slowly withdrawn over the course of greater than 6 minutes with no abnormalities seen in the ascending, transverse, descending, sigmoid colon or rectum including on retroflexed view. The patient tolerated the procedure well and was stable to recovery. Plan for routine screening colonoscopy in 10 years or sooner if symptoms indicate.
[2020-07-01 08:21] VITALS: BP 108/64; PULSE 73; RESP 16; TEMP 36.6; O2SAT 97
== END 2020-07-01 08:40 | disposition home or self-care (01) ==
PROVIDERS: PCP Nurse Practitioner; Visit Provider Surgery
PROC: 0DJD8ZZ Inspection of Lower Intestinal Tract, Via Natural or Artificial Opening Endoscopic (ICD-10-PCS; CPT 45378; principal; 2020-07-01 07:30)
DX: Z12.11 Encounter for screening for malignant neoplasm of colon (principal)
CPT/HCPCS: 45378; J2001

== ENCOUNTER 2020-11-02 03:10 | Outpatient (CLI) | payer OTHER, SELFPAY ==
[2020-11-02 07:59] LABS: HCT 37.6 % (36.0-46.0); HGB 12.6 g/dL (11.2-15.7); MCH 31.3 pg (27.0-33.0); MCHC 33.5 % (32.0-36.0); MCV 93.5 fL (80-95); MPV 10.9 fL (8.0-11.0); Platelet Count 278 10^3/uL (130-400); RBC 4.02 10^6/uL (3.93-5.22); RDW 11.8 % (11.7-14.6); WBC 6.81 10^3/uL (4.4-10.8)
[2020-11-02 08:09] LABS: Hemoglobin A1C 5.3 % (<5.7)
[2020-11-02 09:04] LABS: Calculated LDL 139 mg/dL (<100); Cholesterol 218 mg/dL (<200); HDL Cholesterol 52 mg/dL (40-60); Triglyceride 136 mg/dL (<150)
== END 2020-11-02 03:11 | disposition home or self-care (01) ==
LOC: LBO 03:10
PROVIDERS: PCP Nurse Practitioner; Visit Provider Nurse Practitioner
DX: Z86.2 Personal history of diseases of the blood and blood-forming organs and certain disorders involving the immune mechanism (principal); Z13.6 Encounter for screening for cardiovascular disorders; Z13.1 Encounter for screening for diabetes mellitus
CPT/HCPCS: 36415; 80061; 85027; 83036

== ENCOUNTER 2021-03-08 14:14 | Outpatient (CLI) | payer OTHER, SELFPAY ==
[2021-03-08 17:33] LABS: TSH 0.01 uIU/mL (0.36-3.74)
== END 2021-03-08 14:15 | disposition home or self-care (01) ==
LOC: LBO 14:16
PROVIDERS: PCP Nurse Practitioner; Visit Provider Preventive Medicine Undersea and Hyperbaric Medicine
DX: E07.9 Disorder of thyroid, unspecified (principal)
CPT/HCPCS: 36415; 84443

== ENCOUNTER 2021-03-28 04:35 | Outpatient (CLI) | payer OTHER, SELFPAY ==
[2021-03-28 13:10] LABS: TSH 0.02 uIU/mL (0.36-3.74)
[2021-03-29 12:40] LABS: Thyroglobulin Antibody <1.8 IU/mL (<1.8); Thyroglobulin Tumor Marker 0.1 ng/mL
== END 2021-03-28 04:36 | disposition home or self-care (01) ==
LOC: LBO 04:35
PROVIDERS: PCP Nurse Practitioner; Visit Provider Preventive Medicine Undersea and Hyperbaric Medicine
DX: E07.9 Disorder of thyroid, unspecified (principal)
CPT/HCPCS: 36415; 84432; 84443; 86800

== ENCOUNTER 2021-05-29 00:32 | Outpatient (CLI) | payer OTHER, SELFPAY ==
--- NOTE | 2021-05-29 08:18 | DI.MAMMO_ITS ---
Exam(s) MAMMO SCREENING EXAM: MAMMO SCREENING CLINICAL HISTORY: screening,z12.39 TECHNIQUE: Bilateral full field digital CC and MLO mammographic images were obtained with 3D tomosyn thesis and utilizing computer aided detection (CAD). COMPARISON: Available for comparison. FINDINGS: Masses/Architectural Distortion: No suspicious masses or areas of architectural distortion. Microcalcifications: No suspicious pleomorphic-type are seen. Skin Thickening/Nipple Retraction: None. IMPRESSION: 1. No significant interval change with no specific features of malignancy noted. 2. Unless there is more urgent need, screening mammography is recommended, as per [place] [employer] guidelines. BI-RADS Category 1 - Negative Breast Density - Category C - Heterogeneously dense Breast density category C or D implies that the patient has dense breast tissue. Dense breast tissue is very common and is not abnormal but dense breast tissue can make it harder to find cancer on a ma mmogram. Also, dense breast tissue may increase their breast cancer risk. This information about the result of the mammogram report was provided to the patient to raise their awareness. Use this report when you speak with the patient about their risks for breast cancer, which includes their family hist ory. At that time, you may recommend for more screening tests (Ultrasound or MRI) as they might be us eful based on their risk. A negative radiographic report should not delay biopsy if a dominant or clinically suspicious mass is present. Up to ten percent of cancers are not identified on mammography. A negative report may reinforce clinical impression. Adenosis and dense breasts may obscure an underlying neoplasm. False positive reports average 6 to 10%. Patient will receive a letter notifying them of these results.
== END 2021-05-29 00:52 ==
PROVIDERS: PCP Nurse Practitioner; Visit Provider Nurse Practitioner
DX: Z12.31 Encounter for screening mammogram for malignant neoplasm of breast (principal); R92.8 Other abnormal and inconclusive findings on diagnostic imaging of breast
CPT/HCPCS: 77063; 77067

== ENCOUNTER 2021-09-22 03:48 | Outpatient (CLI) | payer OTHER, SELFPAY ==
[2021-09-22 16:50] LABS: Calcium 8.6 mg/dL (8.5-10.1); FREE T4 1.15 ng/dL (0.76-1.46); TSH 0.47 uIU/mL (0.36-3.74)
[2021-09-25 12:15] LABS: Parathyroid Hormone,Intact 77 pg/mL (19-88)
== END 2021-09-22 03:49 | disposition home or self-care (01) ==
LOC: LBO 03:48
PROVIDERS: PCP Nurse Practitioner; Visit Provider Internal Medicine Endocrinology, Diabetes & Metabolism
DX: E05.90 Thyrotoxicosis, unspecified without thyrotoxic crisis or storm (principal)
CPT/HCPCS: 36415; 82310; 83970; 84439; 84443

== ENCOUNTER 2022-04-19 04:11 | Outpatient (CLI) | payer OTHER, SELFPAY ==
[2022-04-19 14:14] LABS: FREE T4 1.18 ng/dL (0.76-1.46); TSH 0.26 uIU/mL (0.36-3.74)
[2022-04-20 14:46] LABS: Thyroglobulin Antibody <1.8 IU/mL (<1.8); Thyroglobulin Tumor Marker 0.1 ng/mL
== END 2022-04-19 04:12 | disposition home or self-care (01) ==
LOC: LBO 04:11
PROVIDERS: PCP Nurse Practitioner; Visit Provider Student in an Organized Health Care Education/Training Program
DX: Z85.850 Personal history of malignant neoplasm of thyroid (principal)
CPT/HCPCS: 36415; 84432; 84439; 84443; 86800

== ENCOUNTER → 2022-06-01 00:27 | Outpatient (CLI) | payer OTHER, SELFPAY ==
--- NOTE | 2022-06-01 08:30 | DI.MAMMO_ITS ---
Exam(s) MAMMO SCREENING EXAM: MAMMO SCREENING CLINICAL HISTORY: screening, Z12.39. TECHNIQUE: Bilateral full field digital CC and MLO mammographic images were obtained with 3D tomosyn thesis and utilizing computer aided detection (CAD). COMPARISON: Prior mammograms were reviewed. There has been interval bilateral reduction surgery since the mammogram of May 2021. FINDINGS: There are no CAD designations. Surgical clips are noted in both breasts from the interval surgery. There are 2 nodules located medial of center in the left breast, both measuring approximately 7 x 6 m illimeters, and there is another similar size nodule located lateral of center on the CC view. These nodules are also evident on the MLO view In the right breast on the MLO view there are 2 similar size adjacent small nodules located inferiorl y, approximately 6 cm in from the nipple. There are no malignant-appearing microcalcification groups in either breast. New bilateral architectural distortion is related to the reduction surgery. IMPRESSION: Bilateral nodules as described individually above. Bilateral spot compression 3D views and bilateral breast ultrasound recommended. BI-RADS Category 0 - Assessment Incomplete: Need additional imaging evaluation Breast Density - Category C - Heterogeneously dense Breast density Category C or D implies that the patient has dense breast tissue. Dense breast tissue can make it harder to find cancer on a mammogram. Dense breast tissue is also associated with an incr eased risk of breast cancer. This information about the result of the mammogram report was provided to the patient to raise their awareness. Use this report when you speak with the patient about their risks for breast cancer, which includes their family history. At that time, you may recommend additional screening tests (Ultrasoun d or MRI) as these tests may add significant information. A negative radiographic report should not delay biopsy if a dominant or clinically suspicious mass is present. Up to ten percent of cancers are not identified on mammography. A negative report may reinforce clinical impression. Adenosis and dense breasts may obscure an underlying neoplasm. False positive reports average 6 to 10%. Patient will receive a letter notifying them of these results.
== END ==
PROVIDERS: PCP Nurse Practitioner Family; Visit Provider Nurse Practitioner
DX: Z12.31 Encounter for screening mammogram for malignant neoplasm of breast (principal); R92.8 Other abnormal and inconclusive findings on diagnostic imaging of breast
CPT/HCPCS: 77063; 77067

== ENCOUNTER → 2022-06-08 00:26 | Outpatient (CLI) | payer OTHER, SELFPAY ==
--- NOTE | 2022-06-08 | DI.MAMMO_ITS ---
Exam(s) US BREAST LT COMPLETE US BREAST RT COMPLETE MG MAMMO SCREEN CALL BACK BI EXAM: MG MAMMO SCREEN CALL BACK BI AND BILATERAL COMPLETE BREAST ULTRASOUND CLINICAL HISTORY: F/U MAMMO, 2 NODULES LT BREAST, 2 NODULES RT BREAST, R92.8. TECHNIQUE: Bilateral spot mammographic images obtained with 3D tomosynthesisand utilizing computer a ided detection (CAD). In addition, following today's ultrasound additional CC and MLO views of both b reasts performed for correlated purposes.. Complete bilateral breast Ultrasound was also performed, including all 4 quadrants, the retroareolar region, and the ipsilateral axilla. During today's ultrasound examination Beakley spot was placed ov er findings in both breasts and thereafter repeat mammogram was performed for correlated purposes. COMPARISON: Prior mammograms were reviewed. This additional imaging was performed due to findings described on the recent screening mammogram of 06/01/2022. FINDINGS: DIAGNOSTIC MAMMOGRAM: Additional mammographic views performed todayreveal the previously described nodules.We proceeded wit h ultrasound. COMPLETE BILATERAL BREAST ULTRASOUND: Ultrasound performed today reveals multiple bilateral findings... LEFT BREAST ULTRASOUND: At the 12 o'clock position there is a by 3 millimeter nodule which is wider than taller and is probab ly hemorrhagic or proteinaceous microcyst. At the 3 o'clock position which there is a 5 x 3 millimeter taller than wider hypoechoic nodular dens ity which exhibits decreased through transmission. A Beakley spot marker was placed over this area. Also at the 3 o'clock position is a small 3 x 2 millimeter wider than taller probable hemorrhagic or proteinaceous microcyst. At the 4 o'clock position there is a 5 x 3 millimeter wider than taller benign-appearing nodule which is either a benign intramammary lymph node or possibly hemorrhagic microcysts. At the 6 o'clock position there is a 5 x 3 millimeter finding which is probably a microcyst. At the 9 o'clock position there is a 3 x 2 millimeter probable hemorrhagic microcysts. Left axilla is negative for significant adenopathy. RIGHT BREAST ULTRASOUND: At the 12 o'clock position there is a 6 x 3 millimeter benign microcyst. At the 3 o'clock position there is a 1.3 by 0.6 cm finding which is probably hemorrhagic or partially hemorrhagic cyst. At the 7 o'clock position there is a 2 millimeter microcyst. Also at 7 o'clock position there is a 5 x 2 millimeter wider than taller probable hemorrhagic or prot einaceous microcyst. At 8 o'clock position there is a similar appearing 4 x 2 millimeter probable hemorrhagic or proteinac eous microcyst. At the 8 o'clock position there is also a 7 x 3 millimeter wider than taller benign-appearing hemorrh agic or proteinaceous microcyst. At the 9 o'clock position there is a 5 x 2 millimeter microcyst. At the 10 o'clock position there is a 7 x 6 millimeter probable hemorrhagic microcysts. At the central 10 o'clock position there is a 5 x 8 millimeter taller than wider finding which exhibi ts decreased through transmission. A Beakley spot was placed at this site. REPEAT MAMMOGRAM WAS THEN PERFORMED WITH BOTH CC AND MLO VIEWS OF BOTH BREASTS WITH THE BEAKLEY SPOT STENT PLACED AT THE 10 O'CLOCK POSITION OF THE RIGHT BREAST AND 3 O'CLOCK POSITION OF THE LEFT BREAST . These additional mammographic views do not reveal the ultrasound findings to correspond to any truly discernible concerning mammographic findings. IMPRESSION: 1. Mammographic and ultrasound findings as above. I feel that we are most probably dealing with mul tiple foci of fat necrosis related to the recent bilateral reduction mammoplasty surgery. 2. Appropriate follow-up, as discussed by myself with the patient today, is repeat bilateral breast imaging in 6 months, this to include repeat bilateral 3D mammography and bilateral complete breast ul trasound. Of course, earlier imaging would be recommended if there is a self detected breast change noted. BI-RADS Category 3 - 6 month - Probably Benign Finding: Recommend follow-up mammography in 6 months Breast Density - Category C - Heterogeneously dense Breast density Category C or D implies that the patient has dense breast tissue. Dense breast tissue can make it harder to find cancer on a mammogram. Dense breast tissue is also associated with an incr eased risk of breast cancer. This information about the result of the mammogram report was provided to the patient to raise their awareness. Use this report when you speak with the patient about their risks for breast cancer, which includes their family history. At that time, you may recommend additional screening tests (Ultrasoun d or MRI) as these tests may add significant information. A negative radiographic report should not delay biopsy if a dominant or clinically suspicious mass is present. Up to ten percent of cancers are not identified on mammography. A negative report may reinforce clinical impression. Adenosis and dense breasts may obscure an underlying neoplasm. False positive reports average 6 to 10%. Patient will receive a letter notifying them of these results.
== END ==
PROVIDERS: PCP Nurse Practitioner Family; Visit Provider Nurse Practitioner
DX: Z12.31 Encounter for screening mammogram for malignant neoplasm of breast (principal); R92.8 Other abnormal and inconclusive findings on diagnostic imaging of breast; R92.0 Mammographic microcalcification found on diagnostic imaging of breast
CPT/HCPCS: 76642; 77063; 77067

== ENCOUNTER 2024-09-25 00:53 | Outpatient (CLI) | payer OTHER, SELFPAY ==
[2024-09-25 08:45] LABS: Calculated LDL 173 mg/dL (<100); Cholesterol 258 mg/dL (<200); Glucose 94 mg/dL (74-106); HDL Cholesterol 74 mg/dL (>or=50); TSH 17.41 uIU/mL (0.36-3.74); Triglyceride 58 mg/dL (<150)
[2024-09-25 09:05] LABS: Iron 114 ug/dL (50-170)
[2024-09-28 10:21] LABS: Thyroglobulin Antibody <1.8 IU/mL (<1.8); Thyroglobulin Tumor Marker 0.8 ng/mL
== END 2024-09-25 00:54 | disposition home or self-care (01) ==
PROVIDERS: PCP Family Medicine; Visit Provider Family Medicine
DX: Z86.2 Personal history of diseases of the blood and blood-forming organs and certain disorders involving the immune mechanism (principal); Z00.00 Encounter for general adult medical examination without abnormal findings; C73 Malignant neoplasm of thyroid gland
CPT/HCPCS: 36415; 80061; 82947; 83540; 84432; 84439; 84443; 86800